=== PATIENT | male | born 1990 | race Caucasian/White ===

== ENCOUNTER 2018-02-26 21:46 | Emergency (ER) | payer MEDICAID, OTHER ==
--- NOTE | 2018-02-26 22:08 | EDPHY ---
H & P Time Seen by Provider: 02/26/18 22:05 HPI/ROS: CHIEF COMPLAINT: Chest pain HISTORY OF PRESENT ILLNESS: Patient is a 27-year-old homeless methamphetamine and alcohol abuser who presents to the emergency department complaining of chest pain for the last 2 days since he began using meth. He has never had any cardiac abnormalities. He denies shortness of breath. No diaphoresis. No fever. No nausea vomiting or GI symptoms. REVIEW OF SYSTEMS: Constitutional: denies: chills, fever, recent illness, recent injury EENTM: denies: blurred vision, double vision, nose congestion Respiratory: denies: cough, shortness of breath Cardiac: denies: chest pain, irregular heart rate, lightheadedness, palpitations Gastrointestinal/Abdominal: denies: abdominal pain, diarrhea, nausea, vomiting, blood streaked stools Genitourinary: denies: dysuria, frequency, hematuria, pain Musculoskeletal: denies: joint pain, muscle pain Skin: denies: lesions, rash, jaundice, bruising Neurological: denies: headache, numbness, paresthesia, tingling, dizziness, weakness Hematologic/Lymphatic: denies: blood clots, easy bleeding, easy bruising Immunologic/allergic: denies: HIV/AIDS, transplant EXAM: GENERAL: Foul-smelling, no acute distress. HEAD: Atraumatic, normocephalic. EYES: Pupils equal round and reactive to light, extraocular movements intact, sclera anicteric, conjunctiva are normal. ENT: TMs normal, nares patent, oropharynx clear without exudates. Moist mucous membranes. NECK: Normal range of motion, supple without lymphadenopathy or JVD. LUNGS: Breath sounds clear to auscultation bilaterally and equal. No wheezes rales or rhonchi. HEART: Regular rate and rhythm without murmurs, rubs or gallops. ABDOMEN: Soft, nontender, normoactive bowel sounds. No guarding, no rebound. No masses appreciated. BACK: No CVA tenderness, no spinal tenderness, step-offs or deformities EXTREMITIES: Normal range of motion, no pitting or edema. No clubbing or cyanosis. NEUROLOGICAL: Cranial nerves II through XII grossly intact. Normal speech, normal gait. 5/5 strength, normal movement in all extremities, normal sensation PSYCH: Normal mood, normal affect. SKIN: Warm, dry, normal turgor, no visible rashes or lesions. Source: Patient Exam Limitations: No limitations - Medical/Surgical History Hx Asthma: No Hx Chronic Respiratory Disease: No Hx Diabetes: No Hx Cardiac Disease: No Hx Renal Disease: No Hx Cirrhosis: No Hx Alcoholism: No Hx HIV/AIDS: No Other PMH: Polysubstance abuse, homelessness - Family History Significant Family History: No pertinent family hx - Social History Smoking Status: Current some day smoker Alcohol Use: Heavy Drug Use: Marijuana, Other Allergies/Adverse Reactions: ertapenem Allergy (Verified 02/26/18 21:48) Penicillins Allergy (Verified 02/26/18 21:48) Home Medications: Medication Instructions Recorded NK [No Known Home Meds] 02/26/18 Medical Decision Making Procedures: An EKG obtained and was read and documented in trace view. Please see trace view for full reading and report. Sinus rhythm no acute ischemic changes ED Course/Re-evaluation: The patient is well appearing. He is anxious. He is recently been using methamphetamine and alcohol. He does answer questions appropriately. I will obtain EKG but otherwise have a very low suspicion for acute coronary disease or arrhythmia. EKG is reassuring. The patient is happy with this. He would like to go. We will discharge him. We discussed indications for returning. Differential Diagnosis: Partial list of the Differential diagnosis considered include but were not limited to; the polysubstance abuse, anxiety, withdrawal, paranoia, PTSD and although unlikely based on the history and physical exam, I also considered acute coronary disease, dissection, arrhythmia, infection. I discussed these differential diagnoses and the plan with the patient as well as the usual and expected course. The patient understands that the diagnosis is provisional and that in medicine we are not always correct and that further workup is often warranted. Usual and customary warnings were given. All of the patient's questions were answered. The patient was instructed to return to the emergency department should the symptoms at all worsen or return, otherwise to followup with the physician as we discussed. Departure - Departure Disposition: Home, Routine, Self-Care Clinical Impression: Anxiety about health, Polysubstance abuse Condition: Fair Instructions: Abuse of Alcohol (ED), Methamphetamine Abuse (ED) Referrals: [facility],. [Clinic] - As per Instructions
--- NOTE | 2018-02-26 22:16 | CPEKG ---
Heart Rate: 77 RR Interval: 779 P-R Interval: 136 QRSD Interval: 88 QT Interval: 392 QTC Interval: 444 P [place]: 41 QRS [place]: 65 T Wave [place]: 50 EKG Severity - NORMAL ECG - EKG Impression: SINUS RHYTHM Electronically Signed By: Haris Munoz 26-Feb-2018 22:16:37
[2018-02-26 23:51] VITALS: BP 170/99
== END 2018-02-26 22:39 | disposition home or self-care (01) ==
LOC: CED 21:46
DX: F41.9 Anxiety disorder, unspecified (principal); F19.10 Other psychoactive substance abuse, uncomplicated; F17.200 Nicotine dependence, unspecified, uncomplicated

== ENCOUNTER 2018-11-09 14:09 | Emergency (ER) | payer SELFPAY ==
[2018-11-09] MEDS ORDERED: IPRATROPIUM/ALBUTEROL 3 ML DEYVIAL IH ONE (14:31)
[2018-11-09] MEDS ORDERED: ALBUTEROL 3 ML DEYVIAL IH ONE (14:31)
[2018-11-09] MEDS ORDERED: DOXYCYCLINE HYCLATE 100 MG CAP/TAB PO ONE (14:32)
[2018-11-09] MEDS ORDERED: predniSONE 20 MG TAB PO ONE (14:32)
--- NOTE | 2018-11-09 14:44 | EDPHY ---
H & P Stated Complaint: SOB 4 days Time Seen by Provider: 11/09/18 14:27 HPI/ROS: CHIEF COMPLAINT: Shortness of breath for 4 days HISTORY OF PRESENT ILLNESS: 28-year-old male, homeless, history of asthma, smoker, presents emergency department reporting that for the last 4 days he has had shortness of breath and a cough associated with hemoptysis as well as greenish sputum. No chest pain. No palpitations. No lightheadedness, fainting , dizziness, nausea or vomiting. States he used to use an albuterol meter dose inhaler but he "quit it". REVIEW OF SYSTEMS: A comprehensive 10 system review of systems was reviewed and is otherwise negative aside from elements mentioned in the history of present illness and medical decision making. PAST MEDICAL HISTORY: Asthma. SOCIAL HISTORY: Homeless, smoker. Daily alcohol use including today. VITAL SIGNS Reviewed by me. 111, 158/109, 97% GENERAL: Somewhat disheveled. Smells of alcohol and smoke. No obvious respiratory distress. HEENT: Atraumatic. Eyes: No icterus, conjunctival injection. Mouth: moist mucous membranes. No erythema or lesions. Neck: supple with no adenopathy. LUNGS: Diffuse wheezes in the lower lobes. Right upper lobe wheezing posteriorly. CARDIAC: Tachycardic but regular. ABDOMEN: Soft, nontender, nondistended, bowel sounds normal. BACK: No CVA tenderness. EXTREMITIES: No trauma. No edema. Range of motion is normal throughout. NEURO: Alert and oriented, grossly nonfocal. SKIN: Warm and dry, no rash. PSYCHIATRIC: Normal mentation, no agitation. - Personal History Current Tetanus Diphtheria and Acellular Pertussis (TDAP): Yes - Medical/Surgical History Hx Asthma: Yes Hx Chronic Respiratory Disease: No Hx Diabetes: No Hx Cardiac Disease: No Hx Renal Disease: No Hx Cirrhosis: No Hx Alcoholism: No Hx HIV/AIDS: No Hx Splenectomy or Spleen Trauma: No Other PMH: Polysubstance abuse, homelessness - Social History Smoking Status: Current some day smoker Constitutional: Initial Vital Signs Temperature (C) 36.8 C 11/09/18 14:15 Heart Rate 111 H 11/09/18 14:15 Respiratory Rate 22 H 11/09/18 14:15 Blood Pressure 153/109 H 11/09/18 14:15 O2 Sat (%) 97 11/09/18 14:15 O2 Delivery Mode Room Air Allergies/Adverse Reactions: ertapenem Allergy (Verified 11/09/18 14:18) Penicillins Allergy (Verified 11/09/18 14:18) Home Medications: Medication Instructions Recorded Albuterol [Proventil Inhaler] 1 - 2 puffs IH Q4H #1 mdi 11/09/18 Doxycycline Hyclate [Vibramycin] 100 mg PO BID #30 cap 11/09/18 predniSONE 40 mg PO DAILY 4 Days tab 11/09/18 Medical Decision Making - Diagnostics Imaging Results: Imaging Impressions Chest X-Ray 11/09/18 14:45 Impression: Normal. Imaging: I viewed and interpreted images myself ED Course/Re-evaluation: 28-year-old male with history of asthma presenting with 4 days of cough, wheezing, shortness of breath. Patient received a DuoNeb followed by albuterol nebulizer treatment. Chest x-ray was negative for any acute pneumonia. Patient received prednisone 60 mg by mouth. Resting more comfortably after the neb treatments. Will discharged with an albuterol meter dose inhaler, short course of prednisone , doxycycline as patient is homeless, and a smoker and has been having hemoptysis by his report, and encouraged to follow up with [facility]. Differential Diagnosis: Differential diagnosis for the patient's shortness of breath was considered including but not limited to pulmonary infectious processes, asthma exacerbation , bronchitis, bronchospasm, pneumonia, influenza, cardiac causes. - Data Points Medications Given: Discontinued Medications Albuterol (Proventil Neb) 3 ml IH CONT ONE Stop: 11/09/18 14:32 Last Admin: 11/09/18 14:45 Dose: 3 ml Albuterol/Ipratropium (Duoneb) 3 ml IH EDNOW ONE Stop: 11/09/18 14:32 Last Admin: 11/09/18 14:44 Dose: 3 ml Doxycycline Hyclate (Doxycycline Hyclate) 100 mg PO EDNOW ONE PRN Reason: Protocol Stop: 11/09/18 14:33 Last Admin: 11/09/18 14:45 Dose: 100 mg Prednisone (Prednisone) 60 mg PO EDNOW ONE Stop: 11/09/18 14:33 Last Admin: 11/09/18 14:45 Dose: 60 mg Departure - Departure Disposition: Home, Routine, Self-Care Clinical Impression: Exacerbation of asthma Qualifiers: Asthma severity: moderate Asthma persistence: unspecified Qualified Code(s): J45.901 - Unspecified asthma with (acute) exacerbation Acute bronchitis Qualifiers: Bronchitis organism: unspecified organism Qualified Code(s): J20.9 - Acute bronchitis, unspecified Condition: Fair Instructions: Asthma (ED), Acute Bronchitis (ED), How to Use a Nebulizer (ED) Additional Instructions: Please use the metered dose inhaler to help control your coughing and wheezing and shortness of breath. You been given a prescription of prednisone. Please take this as directed for the next 2 days starting tomorrow. You been given a prescription of doxycycline. Please begin taking this as directed. Please get plenty of rest and drink plenty of fluids. Stop smoking cigarettes. Follow-up at [facility] for further treatment and care. Seek care urgently or follow up at the emergency department if he develop a fever, worsening symptoms despite the above treatment, shortness of breath, chest pain, vomiting, or other concerns. Referrals: [facility],. [Clinic] - As per Instructions Stand Alone Forms: Work Excuse Prescriptions: Albuterol [Proventil Inhaler] 1 - 2 puffs IH Q4H #1 mdi Doxycycline Hyclate [Vibramycin] 100 mg PO BID #30 cap predniSONE 40 mg PO DAILY 4 Days tab
[2018-11-09 15:25] VITALS: BP 129/76
== END 2018-11-09 15:28 | disposition home or self-care (01) ==
LOC: CED 14:09
DX: J45.901 Unspecified asthma with (acute) exacerbation (principal); J20.9 Acute bronchitis, unspecified; F17.200 Nicotine dependence, unspecified, uncomplicated; Z59.0 Homelessness
CPT/HCPCS: 71046-PO; 99284-ER; J7512; J7613

== ENCOUNTER 2018-11-11 04:46 | Emergency (ER) | payer OTHER ==
[2018-11-11] MEDS ORDERED: IPRATROPIUM/ALBUTEROL 3 ML DEYVIAL ONE (05:03)
[2018-11-11] MEDS ORDERED: IPRATROPIUM/ALBUTEROL 3 ML DEYVIAL IH ONE (05:09)
[2018-11-11] MEDS ORDERED: ALBUTEROL INH PREPACK MDI TAKEHOME ONE (05:20)
--- NOTE | 2018-11-11 05:20 | EDPHY ---
H & P Stated Complaint: asthmatic cough seen yesterday Time Seen by Provider: 11/11/18 05:15 HPI/ROS: CHIEF COMPLAINT: Asthma exacerbation HISTORY OF PRESENT ILLNESS: Patient is a 28-year-old homeless man with a history of asthma smokes. He was seen here yesterday complaining of shortness of breath and cough. He had negative chest x-ray and improved with albuterol. He is also prescribed albuterol, doxycycline and prednisone burst. He states that he is wheezing again. He was not able to fill his medications. He does work 2 jobs. Severity: Mild Modifying factors: Improved with medications REVIEW OF SYSTEMS: Constitutional: denies: chills, fever, recent illness, recent injury EENTM: denies: blurred vision, double vision, nose congestion Respiratory: See HPI Cardiac: denies: chest pain, irregular heart rate, lightheadedness, palpitations Gastrointestinal/Abdominal: denies: abdominal pain, diarrhea, nausea, vomiting, blood streaked stools Genitourinary: denies: dysuria, frequency, hematuria, pain Musculoskeletal: denies: joint pain, muscle pain Skin: denies: lesions, rash, jaundice, bruising Neurological: denies: headache, numbness, paresthesia, tingling, dizziness, weakness Hematologic/Lymphatic: denies: blood clots, easy bleeding, easy bruising Immunologic/allergic: denies: HIV/AIDS, transplant 10 systems reviewed and negative except as noted EXAM: GENERAL: Well-appearing, well-nourished and in no acute distress. HEAD: Atraumatic, normocephalic. EYES: Pupils equal round and reactive to light, extraocular movements intact, sclera anicteric, conjunctiva are normal. ENT: TMs normal, nares patent, oropharynx clear without exudates. Moist mucous membranes. NECK: Normal range of motion, supple without lymphadenopathy or JVD. LUNGS: Breath sounds clear to auscultation bilaterally and equal. No wheezes rales or rhonchi. HEART: Regular rate and rhythm without murmurs, rubs or gallops. ABDOMEN: Soft, nontender, normoactive bowel sounds. No guarding, no rebound. No masses appreciated. BACK: No CVA tenderness, no spinal tenderness, step-offs or deformities EXTREMITIES: Normal range of motion, no pitting or edema. No clubbing or cyanosis. NEUROLOGICAL: Cranial nerves II through XII grossly intact. Normal speech, normal gait. 5/5 strength, normal movement in all extremities, normal sensation , normal reflexes PSYCH: Normal mood, normal affect. SKIN: Warm, dry, normal turgor, no visible rashes or lesions. Source: Patient, Family Exam Limitations: No limitations - Personal History Current Tetanus/Diphtheria Vaccine: Unsure Current Tetanus Diphtheria and Acellular Pertussis (TDAP): Unsure - Medical/Surgical History Hx Asthma: Yes Hx Chronic Respiratory Disease: No Hx Diabetes: No Hx Cardiac Disease: No Hx Renal Disease: No Hx Cirrhosis: No Hx Alcoholism: No Hx HIV/AIDS: No Hx Splenectomy or Spleen Trauma: No Other PMH: Asthmatic, Polysubstance abuse, homelessness - Family History Significant Family History: No pertinent family hx - Social History Smoking Status: Heavy smoker Alcohol Use: Heavy Drug Use: Other Constitutional: Initial Vital Signs Temperature (C) 36.4 C 11/11/18 04:52 Heart Rate 79 11/11/18 04:52 Respiratory Rate 16 11/11/18 04:52 Blood Pressure 130/82 H 11/11/18 04:52 O2 Sat (%) 95 11/11/18 04:52 O2 Delivery Mode Room Air Allergies/Adverse Reactions: Penicillins Allergy (Severe, Verified 11/11/18 05:46) Other-Enter Comments ertapenem Allergy (Intermediate, Verified 11/11/18 05:46) Hives Home Medications: Medication Instructions Recorded Albuterol [Proventil Inhaler] 1 - 2 puffs IH Q4H #1 mdi 11/09/18 Doxycycline Hyclate [Vibramycin] 100 mg PO BID #30 cap 11/09/18 predniSONE 40 mg PO DAILY 4 Days tab 11/09/18 Medical Decision Making ED Course/Re-evaluation: The patient was given a DuoNeb by nursing protocol. On my exam is clear lungs. He is afebrile. He is not tachycardic or toxic-appearing. He was previously given prescriptions but has not filled them. We will give him a take-home albuterol inhaler. This appears to be a mild exacerbation. The doxycycline and prednisone burst [place] may not be beneficial to him. We are not able to give these to him is take-home medications. I encouraged him to follow up with case management to see if he can have them filled to the hospital if he desires. He states that he does not have a phone number but he can go to the [facility] tomorrow. Differential Diagnosis: Partial list of the Differential diagnosis considered include but were not limited to; asthma exacerbation, bronchitis and although unlikely based on the history and physical exam, I also considered pneumonia, sepsis, acute coronary disease. - Data Points Medications Given: Discontinued Medications Albuterol Sulfate (Proventil Inh Prepack) 1 mdi TAKEHOME EDNOW ONE Stop: 11/11/18 05:21 Last Admin: 11/11/18 05:29 Dose: 1 mdi Albuterol/Ipratropium (Duoneb) 3 ml IH EDNOW ONE Stop: 11/11/18 05:10 Last Admin: 11/11/18 05:29 Dose: 3 ml Departure - Departure Disposition: Home, Routine, Self-Care Clinical Impression: Asthma Qualifiers: Asthma severity: mild Asthma persistence: intermittent Asthma complication type : unspecified Qualified Code(s): J45.20 - Mild intermittent asthma, uncomplicated Condition: Fair Instructions: Albuterol (By breathing), Asthma (ED) Referrals: Patient,NotPresent [Primary Care Provider] - As per Instructions [facility],. [Clinic] - As per Instructions
[2018-11-11 05:32] VITALS: BP 110/66
== END 2018-11-11 05:30 | disposition home or self-care (01) ==
LOC: CED 04:46
DX: J45.20 Mild intermittent asthma, uncomplicated (principal); F17.200 Nicotine dependence, unspecified, uncomplicated; Z88.0 Allergy status to penicillin; Z59.0 Homelessness
CPT/HCPCS: 99283-ER

== ENCOUNTER 2019-01-03 11:39 | Emergency (ER) | payer SELFPAY, OTHER | END 2019-01-03 14:08 | disposition home or self-care (01) | LOC: CED 11:39 ==

== ENCOUNTER 2019-01-22 04:11 | Emergency (ER) | payer MEDICAID, OTHER | END 2019-01-22 06:58 | disposition home or self-care (01) | LOC: CED 04:11 ==